=== PATIENT | female | born 1975 | race Native Hawaiian/Other Pacific Islander ===

== ENCOUNTER → 2017-08-03 | Outpatient (CLI) | payer OTHER ==
[~2017-08-03] MED LIST: ALLE12TA PO; ATOR10 PO; COQ1200C3 PO; FIORIC PO; IBUP800 PO; METHO500 PO
[2017-08-03 12:20] LABS: RHEUMATOID FACTOR SCREEN NEGATIVE (NEGATIVE)
== END ==
LOC: CLAB 09:33
DX: I77.9 Disorder of arteries and arterioles, unspecified (principal); G89.29 Other chronic pain
CPT/HCPCS: 36415; 85652; 86038; 86140; 86430